=== PATIENT | female | born 1975 | race Caucasian/White ===

== ENCOUNTER 2017-05-11 05:35 | Day surgery (SDC) | payer BC ==
[~2017-05-11] VITALS: Ht 167.6 cm; Wt 63.5 kg
[~2017-05-11 05:35] MED LIST: BACTRIM,SEPT1 TABLET PO; ENDOCET 5-3251 EACH PO; KENALOG,ARISTOC15 G2 TP; MIRENA1 EACH IY; MOTRIN600 MG PO; MOTRIN800 MG PO; MULTIVITAMIN1 EAC2 PO; PRENATAL1 EACH PO; ULTRAM50 MG PO
[2017-05-11 06:07] VITALS: BP 115/67
[2017-05-11] MEDS ORDERED: NORCO 5/3251 TABLET PO (08:28)
[2017-05-11 09:47] VITALS: BP 94/59
[2017-05-11 10:47] VITALS: BP 98/61
== END 2017-05-11 11:08 | disposition home or self-care (01) ==
LOC: SDC 05:35
PROC: 0WUF4JZ Supplement Abdominal Wall with Synthetic Substitute, Percutaneous Endoscopic Approach (ICD-10-PCS; principal; 2017-05-11)
DX: K43.9 Ventral hernia without obstruction or gangrene (principal); E78.5 Hyperlipidemia, unspecified; N92.6 Irregular menstruation, unspecified; Z88.2 Allergy status to sulfonamides
CPT/HCPCS: C1781; J0330; J0690; J1100; J1170; J2250; J2405; J2710; J3010